=== PATIENT | female | born 1975 | race Caucasian/White ===

== ENCOUNTER → 2019-11-21 | Outpatient (CLI) | payer OTHER | LOC: M.MRI 12:56 | PROVIDERS: ATTEND Internal Medicine Hematology & Oncology | DX: N64.52 Nipple discharge (principal); Z80.3 Family history of malignant neoplasm of breast; N64.89 Other specified disorders of breast ==

== ENCOUNTER → 2021-01-06 | Outpatient (CLI) | payer OTHER | LOC: M.MRI 14:05 | PROVIDERS: ATTEND Internal Medicine Hematology & Oncology | DX: N64.89 Other specified disorders of breast (principal); Z80.3 Family history of malignant neoplasm of breast ==